=== PATIENT | female | born 1970 ===

== ENCOUNTER 2021-02-03 21:02 | Day surgery (SDC) | payer OTHER ==
[2021-02-03] MEDS ORDERED: ADVIL200 MG PO (22:06)
[2021-02-03] MEDS ORDERED: BENEFIBER PO (22:07)
[2021-02-03] MEDS ORDERED: COLACE 100100 MG/CAP PO (22:07)
[2021-02-03 22:15] VITALS: BP 173/95; PULSE 63; TEMP 98.5
--- NOTE | 2021-02-03 22:15 | NUR ---
Patient to medical room 355 at this time. She has no complaints of pain. She is alert and oriented and able to tolerate PO fluids and general food. She is able to ambulate steadily in room. Partner currently at bedside. Post-op vital signs initiated. Will continue to monitor.
[2021-02-03 22:45] VITALS: BP 165/86; PULSE 61
--- NOTE | 2021-02-03 23:00 | NUR ---
Discharge paperwork discussed at this time. Patient is stable to discharge per doctor's orders. Return to work release form provided to patient. She is escorted out via wheelchair at this time.
[2021-02-03 23:15] VITALS: BP 159/89; PULSE 70
== END 2021-02-03 23:20 | disposition home or self-care (01) ==
LOC: SDCO 23:20
DX: T18.5XXA Foreign body in anus and rectum, initial encounter (principal); I10 Essential (primary) hypertension; E11.9 Type 2 diabetes mellitus without complications; M19.90 Unspecified osteoarthritis, unspecified site; F17.210 Nicotine dependence, cigarettes, uncomplicated; Z79.899 Other long term (current) drug therapy; Z90.710 Acquired absence of both cervix and uterus
CPT/HCPCS: J2704; J3010